=== PATIENT | female | born 1975 | race Caucasian/White ===

== ENCOUNTER 2018-11-14 07:06 | Emergency (ER) | payer BC ==
[2018-11-14] MEDS ORDERED: NS 1,000 ML IV ONE ×3 (07:15→08:46)
--- NOTE | 2018-11-14 07:16 | EDPHY ---
H & P Source: Patient, EMS Time Seen by Provider: 11/14/18 07:16 HPI/ROS: HPI CHIEF COMPLAINT: Lightheadedness. Pre Syncope HISTORY OF PRESENT ILLNESS: 43-year-old female presents emergency room by EMS from a local hotel for lightheadedness. Patient states that she just flew in from [place] yesterday she staying at a local hotel and is here for business. She did have 1 glass of wine last night. She presents emergency room stating that she got up this morning was wash her face and felt very lightheaded. [place] like she was going to pass out. Denies vomiting or nausea denies recent illness. Does state that she had some chest discomfort. No palpitations. States that she went to sit down in her hotel room and when she would get up she gets very lightheaded feeling like she was going to pass out. No history of this. Denies any history of cardiovascular disease or pulmonary embolism. Past Medical History: Denies medical history Past Surgical History: Denies surgical history Social History: Lives in [place]. Here for business. Arrived to [place] yesterday. Family History: Noncontributory ROS REVIEW OF SYSTEMS: 10 Systems were reviewed and negative with the exception of the elements mentioned in the history of present illness. Exam Constitutional nontoxic no acute distress triage nursing summary reviewed, vital signs reviewed, awake/alert. Eyes normal conjunctivae and sclera, EOMI, PERRLA. HENT normal inspection, atraumatic, moist mucus membranes, no epistaxis, neck supple/ no meningismus, no raccoon eyes. Respiratory clear to auscultation bilaterally, normal breath sounds, no respiratory distress, no wheezing. Cardiovascular rate normal, regular rhythm, no murmur, no edema, distal pulses normal. Gastrointestinal soft, non-tender, no rebound, no guarding, normal bowel sounds, no distension, no pulsatile mass. Genitourinary no CVA tenderness. Musculoskeletal no midline vertebral tenderness, full range of motion, no calf swelling, no tenderness of extremities, no meningismus, good pulses, neurovascularly intact. Skin pink, warm, & dry, no rash, skin atraumatic. Neurologic awake, alert and oriented x 3, AAOx3, moves all 4 extremities equally, motor intact, sensory intact, CN II-XII intact, normal cerebellar, normal vision, normal speech. Psychiatric normal mood/affect. Heme/Lymph/Immune no lymphadenopathy. Differential Diagnosis: Differential diagnosis includes but is not limited to: ACS, atypical chest pain, pneumothorax, pneumonia, pulmonary embolism, aortic dissection, congestive heart failure, tumor, musculoskeletal pain, esophageal pain, GERD, peptic ulcer disease, pancreatitis Medical Decision Making: Plan for this patient IV establishment IV fluid bolus 2 L, check orthostatics, EKG, chest x-ray, troponin, and electrolytes and re-evaluate. Re-evaluation: EKG interpretation by me on record in [employer] system. Impression time of EKG 7:20 a.m., sinus rhythm rate of 65, any signs of acute ischemia. No ST elevation or ST depression. No prolonged intervals. Troponin 0.00 EKG is nonischemic. D-dimer negative. Chest x-ray: Negative for acute cardiopulmonary disease. 0840AM: Signed over to Dr. Real, re-eval patient after IV fluids. Most likely lightheaded due to dehydration/altitude illness. (Quique Lynch) Constitutional: Initial Vital Signs Temperature (C) 36.4 C 11/14/18 07:24 Heart Rate 79 11/14/18 07:24 Respiratory Rate 16 11/14/18 07:24 Blood Pressure 103/62 11/14/18 07:24 O2 Sat (%) 99 11/14/18 07:24 O2 Delivery Mode Room Air O2 (L/minute) 1 Allergies/Adverse Reactions: No Known Drug Allergies Allergy (Verified 11/14/18 07:28) Home Medications: Medication Instructions Recorded Adderall 20 mg (*) 11/14/18 Medical Decision Making - Diagnostics Imaging Results: Imaging Impressions Chest X-Ray 11/14/18 07:15 Impression: Negative. Other Provider: I assumed care of the patient at 9:00 a.m. I reviewed the patient's laboratory testing with her. She is ambulatory without acute complaints. She presents to the ED with presyncope which is likely vasovagal in nature. At this point time there is nothing to suggest acute coronary syndrome, arrhythmia, dehydration, pulmonary embolism or a other emergency cause of presyncope and chest discomfort. (Surya Real) - Data Points Laboratory Results: Laboratory Results 11/14/18 07:00 11/14/18 07:00 11/14/18 11/14/18 11/14/18 07:16 07:00 07:00 WBC RBC Hgb Hct MCV MCH MCHC RDW Plt Count MPV Neut % (Auto) Lymph % (Auto) [place] % (Auto) Eos % (Auto) Baso % (Auto) Nucleat RBC Rel Count Absolute Neuts (auto) Absolute Lymphs (auto) Absolute Monos (auto) Absolute Eos (auto) Absolute Basos (auto) Absolute Nucleated RBC Immature Gran % Immature Gran # PT 13.0 SEC SEC (12.0-15.0) INR 0.96 (0.83-1.16) APTT 24.7 SEC SEC (23.0-38.0) D-Dimer < 0.27 ug/mLFEU ug/mLFEU (0.00-0.50) Sodium 139 mEq/L mEq/L (135-145) Potassium 4.2 mEq/L mEq/L (3.5-5.2) Chloride 107 mEq/L mEq/L (97-110) Carbon Dioxide 26 mEq/l mEq/l (22-31) Anion Gap 6 mEq/L mEq/L (6-14) BUN 8 mg/dL mg/dL (7-23) Creatinine 0.6 mg/dL mg/dL (0.6-1.0) Estimated GFR > 60 Glucose 109 mg/dL H mg/dL (70-100) Calcium 9.0 mg/dL mg/dL (8.5-10.4) Magnesium 1.9 mg/dL mg/dL (1.6-2.3) Total Bilirubin 0.4 mg/dL mg/dL (0.1-1.4) Conjugated Bilirubin 0.3 mg/dL mg/dL (0.0-0.5) Unconjugated Bilirubin 0.1 mg/dL mg/dL (0.0-1.1) AST 23 IU/L IU/L (14-46) ALT 24 IU/L IU/L (9-52) Alkaline Phosphatase 58 IU/L IU/L (38-126) POC Troponin I 0.00 ng/mL ng/mL (0.00-0.08) NT-Pro-B Natriuret Pep 61 pg/mL pg/mL (0-125) Total Protein 7.0 g/dL g/dL (6.3-8.2) Albumin 4.2 g/dL g/dL (3.5-5.0) Lipase 69 IU/L IU/L (23-300) 11/14/18 07:00 WBC 4.59 10^3/uL 10^3/uL (3.80-9.50) RBC 4.92 10^6/uL 10^6/uL (4.18-5.33) Hgb 13.7 g/dL g/dL (12.6-16.3) Hct 41.5 % % (38.0-47.0) MCV 84.3 fL fL (81.5-99.8) MCH 27.8 pg L pg (27.9-34.1) MCHC 33.0 g/dL g/dL (32.4-36.7) RDW 13.8 % % (11.5-15.2) Plt Count 233 10^3/uL 10^3/uL (150-400) MPV 10.6 fL fL (8.7-11.7) Neut % (Auto) 49.1 % % (39.3-74.2) Lymph % (Auto) 36.6 % % (15.0-45.0) [place] % (Auto) 11.1 % % (4.5-13.0) Eos % (Auto) 2.8 % % (0.6-7.6) Baso % (Auto) 0.4 % % (0.3-1.7) Nucleat RBC Rel Count 0.0 % % (0.0-0.2) Absolute Neuts (auto) 2.25 10^3/uL 10^3/uL (1.70-6.50) Absolute Lymphs (auto) 1.68 10^3/uL 10^3/uL (1.00-3.00) Absolute Monos (auto) 0.51 10^3/uL 10^3/uL (0.30-0.80) Absolute Eos (auto) 0.13 10^3/uL 10^3/uL (0.03-0.40) Absolute Basos (auto) 0.02 10^3/uL 10^3/uL (0.02-0.10) Absolute Nucleated RBC 0.00 10^3/uL 10^3/uL (0-0.01) Immature Gran % 0.0 % % (0.0-1.1) Immature Gran # 0.00 10^3/uL 10^3/uL (0.00-0.10) PT INR APTT D-Dimer Sodium Potassium Chloride Carbon Dioxide Anion Gap BUN Creatinine Estimated GFR Glucose Calcium Magnesium Total Bilirubin Conjugated Bilirubin Unconjugated Bilirubin AST ALT Alkaline Phosphatase POC Troponin I NT-Pro-B Natriuret Pep Total Protein Albumin Lipase Medications Given: Discontinued Medications Sodium Chloride (Ns) 1,000 mls @ 0 mls/hr IV EDNOW ONE; Wide Open PRN Reason: Protocol Stop: 11/14/18 07:16 Last Admin: 11/14/18 07:22 Dose: 1,000 mls Sodium Chloride (Ns) 1,000 mls @ 0 mls/hr IV ONCE ONE PRN Reason: Wide Open Stop: 11/14/18 08:47 Last Admin: 11/14/18 08:47 Dose: 1,000 mls Point of Care Test Results: Chemistry 11/14/18 07:16 POC Troponin I 0.00 ng/mL ng/mL (0.00-0.08) Departure - Departure Disposition: Home, Routine, Self-Care Clinical Impression: Lightheadedness Condition: Good Instructions: Near Syncope (ED), Lightheadedness (ED) Additional Instructions: 1. Stay well-hydrated drink lots of fluids. 2. Return to the emergency room if he develops dizziness, lightheadedness, passing out, chest pain.
[2018-11-14 07:23] LABS: PLATELET COUNT 233 10^3/uL (150-400)
[2018-11-14 07:32] LABS: INR 0.96 (0.83-1.16)
[2018-11-14 08:48] VITALS: BP 100/64
--- NOTE | 2018-11-14 10:10 | CPEKG ---
Test Reason : OPEN Blood Pressure : / mmHG Vent. Rate : 065 BPM Atrial Rate : 066 BPM P-R Int : 130 ms QRS Dur : 082 ms QT Int : 421 ms P-R-T Axes : 071 063 057 degrees QTc Int : 438 ms Sinus rhythm Confirmed by Surya Real ([id number]) on 11/14/2018 10:10:09 AM Referred By: Confirmed By:Surya Real
== END 2018-11-14 09:38 | disposition home or self-care (01) ==
DX: R42 Dizziness and giddiness (principal); R55 Syncope and collapse
CPT/HCPCS: 84484-ER